=== PATIENT | female | born 1960 | race Caucasian/White ===

== ENCOUNTER 2017-08-27 20:22 | Inpatient (IN) | payer OTHER ==
[~2017-08-27] VITALS: Ht 170.2 cm; Wt 51.5 kg
[~2017-08-27 20:22] MED LIST: ASPIRIN EC325 MG PO; ATIVAN0.5 MG PO; CIPRO HC OTIC S10 ML RIGHT EAR; CLARITIN5 MG/5 ML PO; CLONAZEPAM0.25 MG PO; COMPAZINE5 MG PO; DEXAMETHASONE4 MG PO; FISH OIL 1,0001 EA10 PO; INFANTS' F160 MG/5 M PO; MECLIZINE HCL25 MG PO; METRO GEL 0.75%45 GM TP; MORPHINE CON20 MG/M1 PO; MULTICHEW CHEW1 EACH PO; POTASSIUM CHLO20 MEQ PO; ZOFRAN ODT4 MG PO
[2017-08-27 21:40] LABS: HEMATOCRIT 34.2 % (36.0-46.0); HEMOGLOBIN 12.2 G/DL (11.9-15.5); MCHC 35.7 G/DL (30.0-36.0); PLATELET COUNT 275 K/uL (156-360); RBC DIS.WIDTH-CV 12.1 % (11.8-14.6); RBC DIS.WIDTH-SD 39.5 % (39-53); RED BLOOD COUNT 3.81 M/uL (3.80-5.20); WHITE BLOOD COUNT 15.5 K/uL (4.1-10.2)
[2017-08-27 21:46] LABS: ALBUMIN 4.1 g/dL (3.2-4.8); CHLORIDE 92 mEq/L (99-109); POTASSIUM 3.5 mEq/L (3.7-5.4); SODIUM 128 mEq/L (136-147)
[2017-08-27 21:47] LABS: MAGNESIUM 1.3 mg/dL (1.3-2.7)
[2017-08-27 21:48] LABS: GLUCOSE 118 mg/dL (70-99)
[2017-08-27 21:50] LABS: TOTAL BILIRUBIN 0.4 mg/dL (0.0-1.0)
[2017-08-27 21:52] LABS: ALKALINE PHOSPHATASE 131 IU/L (3-129); CREATININE 1.4 mg/dL (0.6-1.3); GFR ESTIMATE (CALCULATED) 41 mL/min/
[2017-08-27 21:53] LABS: UREA NITROGEN (BUN) 29 mg/dL (9-23)
[2017-08-27 21:54] LABS: AST (GOT) 11 IU/L (2-34)
[2017-08-27 21:55] LABS: ALT (GPT) 9 IU/L (3-49)
[2017-08-27 22:06] LABS: MCV 89.8 FL (83-99)
[2017-08-27 22:36] LABS: ABS NEUTROPHIL COUNT 12.7; ANISOCYTOSIS 1+; EOSINOPHIL ABS CT 0.2; MICROCYTOSIS 1+; PLAT.SUFFICIENCY ADEQUATE
[2017-08-27 22:42] LABS: APPEARANCE CLEAR ((CLEAR)); BILIRUBIN NEGATIVE; BLOOD NEGATIVE; COLOR YELLOW ((YELLOW)); GLUCOSE (STRIP) 50; KETONES NEGATIVE; LEUKOCYTES SMALL; NITRITE NEGATIVE; PROTEIN (STRIP) 30; SPECIFIC GRAVITY 1.012 (1.000-1.030); UROBILINOGEN 0.2 MG/DL (0.2-1.0)
[2017-08-27 23:01] LABS: BACTERIA NONE SEEN /HPF; EPITHELIAL CELLS RARE /HPF; MUCUS TRACE /LPF; RED BLOOD CELLS 0-5 /HPF (0-5); UCUL ADDED? YES; WHITE BLOOD CELLS 15-20 /HPF (0-5)
[2017-08-27] MEDS ORDERED: MIRALAX17 GM PO (23:57)
[2017-08-27] MEDS ORDERED: CONSTULOSE10 GM/15 M PO (23:58)
[2017-08-28 04:14] VITALS: BP 157/71
[2017-08-28 07:15] VITALS: BP 179/79
[2017-08-28 07:20] VITALS: BP 179/79
[2017-08-28 10:48] LABS: HEMATOCRIT 29.6 % (36.0-46.0); HEMOGLOBIN 10.3 G/DL (11.9-15.5); MCH 31.9 PG (29.0-34.0); MCHC 34.8 G/DL (30.0-36.0); MCV 91.6 FL (83-99); PLATELET COUNT 233 K/uL (156-360); RBC DIS.WIDTH-CV 12.2 % (11.8-14.6); RBC DIS.WIDTH-SD 41.1 % (39-53); RED BLOOD COUNT 3.23 M/uL (3.80-5.20)
[2017-08-28 11:13] LABS: CHLORIDE 98 MEQ/L (99-109); GFR ESTIMATE (CALCULATED) > 59 mL/min/; GLUCOSE 144 mg/dL (70-99); POTASSIUM 2.9 MEQ/L (3.7-5.4); SODIUM 131 MEQ/L (136-147); UREA NITROGEN (BUN) 19 mg/dL (9-23)
[2017-08-28 17:00] VITALS: BP 173/81
[2017-08-28 19:39] LABS: C DIFF TOXIN NEGATIVE (NEGATIVE)
[2017-08-28 20:00] VITALS: BP 167/79
[2017-08-29 00:27] VITALS: BP 183/87
[2017-08-29 06:30] LABS: HEMATOCRIT 30.3 % (36.0-46.0); HEMOGLOBIN 10.5 G/DL (11.9-15.5); MCH 31.9 PG (29.0-34.0); MCHC 34.7 G/DL (30.0-36.0); MCV 92.1 FL (83-99); PLATELET COUNT 269 K/uL (156-360); RBC DIS.WIDTH-CV 12.3 % (11.8-14.6); RBC DIS.WIDTH-SD 41.3 % (39-53); RED BLOOD COUNT 3.29 M/uL (3.80-5.20); WHITE BLOOD COUNT 19.8 K/uL (4.1-10.2)
[2017-08-29 06:53] LABS: CHLORIDE 99 MEQ/L (99-109); CREATININE 1.1 MG/DL (0.6-1.3); GFR ESTIMATE (CALCULATED) 54 mL/min/; POTASSIUM 3.2 MEQ/L (3.7-5.4); SODIUM 133 MEQ/L (136-147); UREA NITROGEN (BUN) 15 mg/dL (9-23)
[2017-08-29 06:55] LABS: GLUCOSE 89 mg/dL (70-99)
[2017-08-29 07:27] VITALS: BP 163/78
[2017-08-29 09:21] LABS: ABS NEUTROPHIL COUNT 17.5; ANISOCYTOSIS 1+; ATYPICAL LYMPHOCYTE 1.8 %; BAND NEUTROPHILS 17.1 % (0-8.0); EOSINOPHIL ABS CT 0; LYMPHOCYTES 7.2 % (15.0-45.0); MICROCYTOSIS 1+; MONOCYTES 2.7 % (0-9.0); SEG.NEUTROPHILS 71.2 % (46.0-76.0)
[2017-08-29 10:14] VITALS: BP 126/69
[2017-08-29 11:24] VITALS: BP 134/73
[2017-08-30 00:50] VITALS: BP 162/74
[2017-08-30 05:39] LABS: HEMATOCRIT 28.3 % (36.0-46.0); HEMOGLOBIN 9.7 G/DL (11.9-15.5); MCH 31.3 PG (29.0-34.0); MCHC 34.3 G/DL (30.0-36.0); MCV 91.3 FL (83-99); PLATELET COUNT 266 K/uL (156-360); RBC DIS.WIDTH-CV 12.3 % (11.8-14.6); RBC DIS.WIDTH-SD 40.6 % (39-53)
[2017-08-30 06:08] LABS: CHLORIDE 98 MEQ/L (99-109); GFR ESTIMATE (CALCULATED) > 59 mL/min/; GLUCOSE 89 mg/dL (70-99); POTASSIUM 3.2 MEQ/L (3.7-5.4); SODIUM 134 MEQ/L (136-147); UREA NITROGEN (BUN) 9 mg/dL (9-23)
[2017-08-30 06:33] LABS: ABS NEUTROPHIL COUNT 20.7; ANISOCYTOSIS 2+; ATYPICAL LYMPHOCYTE 1.8 %; BAND NEUTROPHILS 13.5 % (0-8.0); EOSINOPHIL ABS CT 0; HYPOCHROMASIA 2+; LYMPHOCYTES 4.8 % (15.0-45.0); METAMYELOCYTES 1.7 %; MICROCYTOSIS 2+; MONOCYTES 1.8 % (0-9.0); NUCLEATED RBC'S 0.4; OVALOCYTES 1+; PLAT.SUFFICIENCY ADEQUATE; POIKILOCYTOSIS 2+; SEG.NEUTROPHILS 76.4 % (46.0-76.0)
[2017-08-30 08:46] LABS: MAGNESIUM 0.8 mg/dl (1.3-2.7)
[2017-08-30 09:00] VITALS: BP 167/78
[2017-08-30 10:24] LABS: PHOSPHORUS 2.5 mg/dL (2.5-4.9)
[2017-08-30 12:15] VITALS: BP 138/75
[2017-08-30 13:52] LABS: ALBUMIN 3.1 G/DL (3.2-4.8); ALKALINE PHOSPHATASE 98 IU/L (3-129); ALT (GPT) 5 IU/L (3-49); AST (GOT) 10 IU/L (2-34); CHLORIDE 97 MEQ/L (99-109); CREATININE 0.9 MG/DL (0.6-1.3); GFR ESTIMATE (CALCULATED) > 59 mL/min/; GLUCOSE 97 mg/dL (70-99); SODIUM 131 MEQ/L (136-147); TOTAL BILIRUBIN 0.2 MG/DL (0.0-1.0); TOTAL PROTEIN 5.2 G/DL (6.4-8.3); UREA NITROGEN (BUN) 10 mg/dL (9-23)
[2017-08-30 15:53] VITALS: BP 139/70
[2017-08-30 15:55] LABS: MAGNESIUM 0.7 mg/dl (1.3-2.7)
[2017-08-30 16:30] VITALS: BP 125/59
[2017-08-30 20:40] LABS: CHLORIDE 99 MEQ/L (99-109); CREATININE 0.9 MG/DL (0.6-1.3); GFR ESTIMATE (CALCULATED) > 59 mL/min/; GLUCOSE 157 mg/dL (70-99); MAGNESIUM 2.8 mg/dl (1.3-2.7); POTASSIUM 3.6 MEQ/L (3.7-5.4); SODIUM 132 MEQ/L (136-147); UREA NITROGEN (BUN) 11 mg/dL (9-23)
[2017-08-30 20:57] LABS: APPEARANCE CLEAR ((CLEAR)); BILIRUBIN NEGATIVE; BLOOD NEGATIVE; COLOR STRAW ((YELLOW)); GLUCOSE (STRIP) 50; KETONES NEGATIVE; LEUKOCYTES NEGATIVE; NITRITE NEGATIVE; PROTEIN (STRIP) NEGATIVE; SPECIFIC GRAVITY 1.009 (1.000-1.030); UCUL ADDED? NO; UROBILINOGEN 0.2 MG/DL (0.2-1.0)
[2017-08-31 01:03] VITALS: BP 150/80
[2017-08-31 06:45] VITALS: BP 160/81
[2017-08-31 06:53] LABS: BASOPHIL (%) 0.6 % (0-1); BASOPHIL COUNT 0.1 K/uL (0-0.1); EOSINOPHIL (%) 0.1 % (0-5); HEMATOCRIT 29.2 % (36.0-46.0); HEMOGLOBIN 9.9 G/DL (11.9-15.5); LYMPHOCYTE COUNT 1.7 K/uL (1.0-2.8); MCH 31.3 PG (29.0-34.0); MCHC 33.9 G/DL (30.0-36.0); MCV 92.4 FL (83-99); MONOCYTE (%) 4.4 % (3-12); MONOCYTE COUNT 0.8 K/uL (0-0.8); NEUTROPHIL (%) 82.9 % (45-76); NEUTROPHIL COUNT 15.9 K/uL (1.8-6.4); PLATELET COUNT 294 K/uL (156-360); RBC DIS.WIDTH-CV 12.7 % (11.8-14.6); RBC DIS.WIDTH-SD 42.6 % (39-53); RED BLOOD COUNT 3.16 M/uL (3.80-5.20); WHITE BLOOD COUNT 19.1 K/uL (4.1-10.2)
[2017-08-31 08:49] LABS: CHLORIDE 100 MEQ/L (99-109); GFR ESTIMATE (CALCULATED) > 59 mL/min/; POTASSIUM 4.3 MEQ/L (3.7-5.4); SODIUM 133 MEQ/L (136-147); UREA NITROGEN (BUN) 9 mg/dL (9-23)
[2017-08-31 08:50] LABS: GLUCOSE 103 mg/dL (70-99); MAGNESIUM 2.1 mg/dl (1.3-2.7)
[2017-08-31 12:24] LABS: CHLORIDE 101 MEQ/L (99-109); CREATININE 0.9 MG/DL (0.6-1.3); GFR ESTIMATE (CALCULATED) > 59 mL/min/; GLUCOSE 115 mg/dL (70-99); SODIUM 132 MEQ/L (136-147); UREA NITROGEN (BUN) 9 mg/dL (9-23)
[2017-08-31 12:25] LABS: MAGNESIUM 1.7 mg/dl (1.3-2.7)
[2017-08-31 15:22] VITALS: BP 139/79
[2017-08-31 18:05] LABS: CHLORIDE 101 MEQ/L (99-109); CREATININE 0.9 MG/DL (0.6-1.3); GFR ESTIMATE (CALCULATED) > 59 mL/min/; GLUCOSE 111 mg/dL (70-99); SODIUM 132 MEQ/L (136-147); UREA NITROGEN (BUN) 13 mg/dL (9-23)
[2017-08-31 18:06] LABS: MAGNESIUM 1.4 mg/dl (1.3-2.7)
[2017-08-31 23:21] VITALS: BP 128/68
[2017-09-01 06:28] LABS: BASOPHIL (%) 0.4 % (0-1); BASOPHIL COUNT 0.1 K/uL (0-0.1); EOSINOPHIL (%) 0.1 % (0-5); HEMATOCRIT 29.3 % (36.0-46.0); HEMOGLOBIN 9.8 G/DL (11.9-15.5); IMMATURE GRANULOCYTE (%) 1.7 % (0.0-0.7); LYMPHOCYTE (%) 8.5 % (15-42); LYMPHOCYTE COUNT 1.3 K/uL (1.0-2.8); MCH 31.2 PG (29.0-34.0); MCHC 33.4 G/DL (30.0-36.0); MCV 93.3 FL (83-99); MONOCYTE (%) 5.1 % (3-12); MONOCYTE COUNT 0.8 K/uL (0-0.8); NEUTROPHIL (%) 84.2 % (45-76); NEUTROPHIL COUNT 13.2 K/uL (1.8-6.4); PLATELET COUNT 268 K/uL (156-360); RBC DIS.WIDTH-SD 43.8 % (39-53); RED BLOOD COUNT 3.14 M/uL (3.80-5.20); WHITE BLOOD COUNT 15.6 K/uL (4.1-10.2)
[2017-09-01 06:51] LABS: CHLORIDE 99 MEQ/L (99-109); GFR ESTIMATE (CALCULATED) > 59 mL/min/; GLUCOSE 98 mg/dL (70-99); MAGNESIUM 1.2 mg/dl (1.3-2.7); POTASSIUM 3.9 MEQ/L (3.7-5.4); SODIUM 134 MEQ/L (136-147); UREA NITROGEN (BUN) 12 mg/dL (9-23)
[2017-09-01 08:05] VITALS: BP 145/71
[2017-09-01 14:43] VITALS: BP 143/82
[2017-09-01 23:34] VITALS: BP 130/72
[2017-09-02 06:14] LABS: CHLORIDE 97 MEQ/L (99-109); GFR ESTIMATE (CALCULATED) > 59 mL/min/; GLUCOSE 105 mg/dL (70-99); POTASSIUM 3.8 MEQ/L (3.7-5.4); SODIUM 133 MEQ/L (136-147); UREA NITROGEN (BUN) 16 mg/dL (9-23)
[2017-09-02 06:15] LABS: MAGNESIUM 1.7 mg/dl (1.3-2.7)
[2017-09-02 07:50] VITALS: BP 150/79
[2017-09-02 16:08] VITALS: BP 154/80
[2017-09-02 22:40] VITALS: BP 136/73
[2017-09-03 06:26] LABS: HEMOGLOBIN 9.7 G/DL (11.9-15.5); MCHC 33.4 G/DL (30.0-36.0); MCV 92.7 FL (83-99); PLATELET COUNT 252 K/uL (156-360); RBC DIS.WIDTH-CV 12.9 % (11.8-14.6); RBC DIS.WIDTH-SD 43.6 % (39-53); RED BLOOD COUNT 3.13 M/uL (3.80-5.20); WHITE BLOOD COUNT 11.8 K/uL (4.1-10.2)
[2017-09-03 07:13] LABS: CHLORIDE 97 MEQ/L (99-109); GFR ESTIMATE (CALCULATED) > 59 mL/min/; GLUCOSE 98 mg/dL (70-99); POTASSIUM 3.9 MEQ/L (3.7-5.4); SODIUM 134 MEQ/L (136-147); UREA NITROGEN (BUN) 19 mg/dL (9-23)
[2017-09-03 07:20] LABS: MAGNESIUM 1.4 mg/dl (1.3-2.7)
[2017-09-03 07:23] VITALS: BP 145/84
[2017-09-03] MEDS ORDERED: MAG-OXIDE400 MG PO (11:34)
[2017-09-03] MEDS ORDERED: REGLAN5 MG PO (12:44)
[2017-09-03 15:05] VITALS: BP 116/50
== END 2017-09-03 19:40 | disposition home or self-care (01) | DRG 641 ==
LOC: EME 20:22 → EDOF 08-28 02:57 → ENRESERV 08-28 02:58 → 5WEST 08-28 03:51 → ENRESERV 08-30 09:58 → 5EAST 08-30 16:33 → ENRESERV 08-31 13:50 → 5EAST 08-31 16:01 → ENPENDDIS 09-03 → 5EAST 09-03 19:40
PROVIDERS: Internal Medicine; Internal Medicine Medical Oncology; Internal Medicine Nephrology; Nurse Practitioner Adult Health; Nurse Practitioner Family; Physician Assistant
DX: E87.1 Hypo-osmolality and hyponatremia (principal); C56.2 Malignant neoplasm of left ovary; C56.1 Malignant neoplasm of right ovary; R11.2 Nausea with vomiting, unspecified; R19.7 Diarrhea, unspecified; E04.1 Nontoxic single thyroid nodule; E83.51 Hypocalcemia; N17.9 Acute kidney failure, unspecified; E83.42 Hypomagnesemia; E87.6 Hypokalemia; Q39.6 Congenital diverticulum of esophagus; Z92.21 Personal history of antineoplastic chemotherapy; Z88.1 Allergy status to other antibiotic agents; Z88.5 Allergy status to narcotic agent; Z88.8 Allergy status to other drugs, medicaments and biological substances; Z79.899 Other long term (current) drug therapy; Z68.1 Body mass index [BMI] 19.9 or less, adult; Z90.710 Acquired absence of both cervix and uterus; Z83.3 Family history of diabetes mellitus; E72.09 Other disorders of amino-acid transport; N30.90 Cystitis, unspecified without hematuria; E86.0 Dehydration
CPT/HCPCS: 71045; 80048; 80048 91; 80053; 81003; 82306; 82330; 83735; 84100; 84132 91; 85025; 85027; 86304; 87077; 87086; 87186; 87493; 99281; 99285; J0290; J0696; J0780; J1200; J1644; J2060; J2270; J2405; J2765; J3475; J3480; J7030; J7040; J7050

== ENCOUNTER 2017-09-28 09:28 | Day surgery (SDC) | payer OTHER ==
[~2017-09-28] VITALS: Ht 168.9 cm; Wt 52.2 kg
[~2017-09-28 09:28] MED LIST changes: +CLONAZEPAM0.5 MG PO; +CONSTULOSE10 GM/15 M PO; +MAG-OXIDE400 MG PO; +MIRALAX17 GM PO; +REGLAN5 MG PO
[2017-09-28 10:13] VITALS: BP 159/75
[2017-09-28] MEDS ORDERED: NORCO 5/3251 TABLET PO (11:55)
[2017-09-28 12:45] VITALS: BP 160/85
[2017-09-28 14:00] VITALS: BP 161/78
== END 2017-09-28 14:30 | disposition home or self-care (01) ==
LOC: SDC 09:28
DX: Z45.2 Encounter for adjustment and management of vascular access device (principal); Z85.43 Personal history of malignant neoplasm of ovary; Z92.21 Personal history of antineoplastic chemotherapy
CPT/HCPCS: J0131; J0690; J2250; J2405; J2765; S0020